=== PATIENT | female | born 1990 | race Two or more races ===

== ENCOUNTER 2019-10-31 08:37 | Day surgery (SDC) | payer OTHER | END 2019-10-31 15:20 | disposition home or self-care (01) | LOC: CIR.AMB 08:37 | DX: N84.0 Polyp of corpus uteri (principal) ==

== ENCOUNTER 2022-11-02 18:45 | Emergency (ER) | payer OTHER ==
[~2022-11-02] VITALS: Ht 149.9 cm; Wt 56.7 kg
[2022-11-02] MEDS ORDERED: METHYLPREDNISOLO4 M1 PO (19:18)
[2022-11-03] MEDS ORDERED: ZEBUTAL 50-3251 EACH PO (03:04)
== END 2022-11-03 03:08 ==
LOC: ER 18:45
DX: R51.9 Headache, unspecified (principal)

== ENCOUNTER 2022-11-29 08:57 | Outpatient (CLI) | payer OTHER ==
[~2022-11-29 08:57] MED LIST: METHYLPREDNISOLO4 M1 PO; ZEBUTAL 50-3251 EACH PO
== END 2022-11-29 09:08 | disposition home or self-care (01) ==
LOC: RX STUDY 08:57
PROVIDERS: ATTEND Obstetrics & Gynecology Reproductive Endocrinology
DX: N93.0 Postcoital and contact bleeding (principal)

== ENCOUNTER 2023-11-30 15:13 | Emergency (ER) | payer OTHER ==
[~2023-11-30] VITALS: Ht 149.9 cm; Wt 56.7 kg
[2023-11-30] MEDS ORDERED: ENALAPRILAT DIHYDRATE 1.25 MG/ML VIAL IV ONE (16:30)
[2023-11-30 16:44] LABS: HEMATOCRIT 39.2 % (36.0-45.00); HEMOGLOBIN 13.1 g/dL (12.0-15.00); MEAN CELL VOLUME 78.5 fL (80.00-100.00); MEAN CORPUSCULAR HEMOGLOBIN 26.3 pg (27.00-32.0); MEAN CORPUSCULAR HGB CONC 33.5 g/dl (32.0-36.0); PLATELET COUNT 299 K/uL (150-450); RED BLOOD COUNT 4.99 M/uL (4.00-6.00); RED CELL DISTRIBUTION WIDTH 14.3 % (11.5-14.5)
[2023-11-30 17:08] LABS: BILIRUBIN TOTAL 0.28 mg/dL (0.3-1.2); CALCIUM 9.6 mg/dL (8.5-10.1); CREATININE SERUM 0.66 mg/dL (0.55-1.02); GFR 104.46; GLOBULINA 3.9 G/DL (2.4-3.5); POTASSIUM 3.73 mEq/L (3.5-5.1); TOTAL PROTEIN 7.9 gm/dL (6.4-8.2)
[2023-11-30] MEDS ORDERED: COZAAR25 MG PO (17:27)
== END 2023-11-30 17:32 | disposition home or self-care (01) ==
LOC: ER 15:14
PROVIDERS: General Practice
DX: I16.9 Hypertensive crisis, unspecified (principal); R51.9 Headache, unspecified

== ENCOUNTER 2024-05-21 15:35 | Emergency (ER) | payer OTHER ==
[~2024-05-21] VITALS: Ht 149.9 cm; Wt 56.7 kg
[~2024-05-21 15:35] MED LIST changes: +COZAAR25 MG PO
[2024-05-21] MEDS ORDERED: LABETALOL HCL100 MG PO (15:52)
[2024-05-21] MEDS ORDERED: SUMATRIPTAN SUCCINATE 6 MG/0.5 ML VIAL SUBCUTANEO STA (16:36)
[2024-05-21] MEDS ORDERED: SUMATRIPTAN SUCCINATE 6 MG/0.5 ML VIAL SUBCUTANEO ONE (16:48)
== END 2024-05-21 18:40 | disposition home or self-care (01) ==
LOC: ER 15:37
DX: R51.9 Headache, unspecified (principal)

== ENCOUNTER 2024-11-05 06:01 | Emergency (ER) | payer OTHER ==
[~2024-11-05] VITALS: Ht 149.9 cm; Wt 57.6 kg
[~2024-11-05 06:01] MED LIST changes: +LABETALOL HCL100 MG PO
[2024-11-05] MEDS ORDERED: ORPHENADRINE CITRATE 30 MG/ML AMPUL IM ONE (08:30)
[2024-11-05] MEDS ORDERED: KETOROLAC TROMETHAMINE 60 MG VIAL IM ONE ×2 (08:30→08:50)
[2024-11-05] MEDS ORDERED: ORPHENADRINE CITRATE 30 MG/ML AMPUL ONE (08:50)
[2024-11-05] MEDS ORDERED: NORFLEX100MG PO (10:14)
[2024-11-05] MEDS ORDERED: KETO10TA2 PO (10:14)
== END 2024-11-05 10:38 | disposition home or self-care (01) ==
LOC: ER 06:04
DX: M62.830 Muscle spasm of back (principal); I10 Essential (primary) hypertension; K21.9 Gastro-esophageal reflux disease without esophagitis